=== PATIENT | female | born 1965 | race Caucasian/White ===

== ENCOUNTER 2025-05-28 15:27 | Outpatient (CLI) | payer BC, SELFPAY | END 2025-05-28 15:28 | disposition home or self-care (01) | DX: R10.11 Right upper quadrant pain (principal) | CPT/HCPCS: 80076; 83690; 87086 ==

== ENCOUNTER 2025-06-06 13:35 | Outpatient (CLI) | payer BC, SELFPAY | END 2025-06-06 13:36 | disposition home or self-care (01) | LOC: NFLDREF 06-10 15:21 | DX: N30.01 Acute cystitis with hematuria (principal) | CPT/HCPCS: 87086 ==